=== PATIENT | female | born 1980 | race Caucasian/White ===

== ENCOUNTER → 2019-10-15 | Outpatient (CLI) | payer BC ==
[2019-10-15 11:42] LABS: CARBON DIOXIDE 23 MMOL/L (21-32); CHLORIDE 104 MMOL/L (98-107); POTASSIUM 3.9 MMOL/L (3.6-5.0); SODIUM 140 MMOL/L (135-145)
[2019-10-15 11:43] LABS: ALANINE AMINOTRANSFERASE 59 U/L (0-55); ALBUMIN 4.5 GM/DL (3.2-4.5); ALKALINE PHOSPHATASE 72 U/L (40-136); BILIRUBIN,TOTAL 0.3 MG/DL (0.1-1.0); BUN/CREATININE RATIO 11; CALCIUM 9.3 MG/DL (8.5-10.1); CREATININE SERUM 0.81 MG/DL (0.60-1.30); GFR ESTIMATED > 60; GLUCOSE 130 MG/DL (70-105); TOTAL PROTEIN 7.5 GM/DL (6.4-8.2)
[2019-10-15 14:46] LABS: TRIGLYCERIDES 158 MG/DL (<150); VLDL CHOLESTEROL 32 MG/DL (5-40)
[2019-10-15 14:51] LABS: CHOLESTEROL 176 MG/DL (< 200)
[2019-10-15 14:52] LABS: HDL CHOLESTEROL 37 MG/DL (40-60)
== END ==
LOC: LAB FS 10:16
PROVIDERS: ATTEND Family Medicine
DX: Z00.00 Encounter for general adult medical examination without abnormal findings (principal); Z83.3 Family history of diabetes mellitus
CPT/HCPCS: 36415; 80053; 80061; 83036; 84443; 86769

== ENCOUNTER → 2019-11-05 | Outpatient (CLI) | payer BC ==
--- NOTE | 2019-11-06 12:30 | STRESS TEST ---
DATE OF SERVICE: 11/05/2019 EXERCISE MYOVIEW STRESS TEST REPORT REFERRING PHYSICIAN: Anisa Sierra. Baseline heart rate is 64. Baseline blood pressure 106/75. Baseline EKG, sinus rhythm with no ischemic changes. In summary, the patient was able to exercise for a total of 7 minutes on standard Jean Carlos protocol. With peak exercise level, EKG was showing nondiagnostic changes. During recovery, heart rate and blood pressure returned to baseline. The resting and stressed images were reviewed showing no significant ischemia or infarction. SSS 1. SDS 1. TID 1.03. EF 67%. CONCLUSION: 1. Good exercise tolerance for a total of 7 minutes on standard Jean Carlos protocol, 8.5 METs achieving 96% of maximum expected heart rate. 2. Appropriate heart rate and blood pressure response to exercise returned to baseline during recovery. 3. Minimal nondiagnostic EKG changes with exercise returned to baseline during recovery. 4. No significant ischemia or infarction on SPECT images. 5. Normal left ventricular size, EF 67%. Job ID: [id number] DocumentID: [id number] Dictated Date: 11/06/2019 08:36:35 Card Checker Date: 11/06/2019 12:29:40 Dictated By: SILVANA LAFLEUR MD
== END ==
LOC: CARD 07:20
PROVIDERS: ATTEND Internal Medicine Cardiovascular Disease
DX: I10 Essential (primary) hypertension (principal); K21.9 Gastro-esophageal reflux disease without esophagitis; Z82.49 Family history of ischemic heart disease and other diseases of the circulatory system; Z20.828 Contact with and (suspected) exposure to other viral communicable diseases
CPT/HCPCS: 78452; 93017; A9502

== ENCOUNTER 2023-01-14 10:44 | Emergency (ER) | payer BC ==
[~2023-01-14] VITALS: Ht 160 cm; Wt 68.0 kg
--- NOTE | 2023-01-14 11:18 | ED Abdominal Pain ---
General Chief Complaint: Abdominal/GI Problems Stated Complaint: AB PAIN Nursing Triage Note: PT AMB TO RM 10 WITH COMPLAINT OF LOW ABD. HAS HAD THE PAIN INTERMITTENTLY FOR AROUND 3 MONTHS. HAS BEEN SEEN BY PCP. HAS ULTRASOUND SCHEDULED FOR TOMORROW. PAIN BECAME WORSE THIS MORNING AND SHE PASSED OUT. Source of Information: Patient Exam Limitations: No Limitations History of Present Illness Date Seen by Provider: Jan 14, 2023 Time Seen by Provider: 11:13 Initial Comments Patient is a 42-year-old female with a history of prediabetes who presents to the ED for lower abdominal pain. She has been experiencing this pain for the past 3 months. It occurs around every month around her menstrual cycle. She reports this pressure in her lower abdomen bilateral. This pain seems to be fairly constant throughout her menstrual cycle which last about 6 to 7 days. She reports heavy vaginal bleeding and going through several pads. She states that this pain intensified last night as well this morning she had an episode where she passed out secondary to the pain woke up on the floor. Unknown she hit her head but denies any headache dizziness visual changes, vomiting. She rates pain 6 out of 10. Has been taken ibuprofen. She is scheduled for an ultrasound tomorrow. Her primary care physician Dr. Cordova. Strong family history of ovarian cyst, uterine fibroids. History of cholecystectomy and 2 C- sections. She does report some mild diarrhea. Denies pain with urination frequent urination. She has been on antibiotics twice as a thought this was secondary to urinary tract infection. She has no urinary symptoms. She denies fever chills, visual changes, neck pain, back pain Allergies and Home Medications Allergies Coded Allergies: Penicillins (Verified Allergy, Unknown, 01/14/23) amoxicillin (Verified Allergy, Unknown, 01/14/23) Patient Home Medication List Home Medication List Reviewed: Yes Cephalexin (Cephalexin) 500 Mg Tablet, 500 MG PO BID Prescribed by: PETE ESPINAL on 01/14/23 1311 Review of Systems Review of Systems Constitutional: No chills, No diaphoresis, No malaise, No weakness EENTM: No Double Vision, No Eye Pain Gastrointestinal: Abdominal Pain; Denies Diarrhea; Nausea; Denies Vomiting Genitourinary: Denies Burning, Denies Discharge, Denies Drainage, Denies Frequency Musculoskeletal: No back pain, No joint pain Skin: No change in color, No change in hair/nails Psychiatric/Neurological: Denies Anxiety, Denies Depressed Endocrine: Denies Excessive Sweating, Denies Flushing All Other Systems Reviewed Negative Unless Noted: Yes Past [id number] Hx Patient Social History Tobacco Use?: No Use of E-Cig and/or Vaping dev: No Substance use?: No Alcohol Use?: No Pt feels they are or have been: No Physical Exam Vital Signs Vital Signs - First Documented 01/14/23 10:49 Temp 35.7 Pulse 86 Resp 17 B/P (MAP) 119/85 (96) Pulse Ox 99 O2 Delivery Room Air Capillary Refill : Height/Weight/BMI Height: '" Weight: lbs. oz. kg; 26.00 BMI Method: General Appearance: WD/WN, no apparent distress HEENT: PERRL/EOMI, normal ENT inspection, TMs normal, pharynx normal Neck: non-tender, full range of motion, supple, normal inspection Respiratory: chest non-tender, lungs clear Cardiovascular: regular rate, rhythm, no edema, no gallop, no JVD Gastrointestinal: normal bowel sounds, soft, no organomegaly, tenderness (biLateral lower abdominal tenderness) Extremities: normal range of motion, non-tender, normal inspection, no pedal edema Back: normal inspection, no CVA tenderness Neurologic/Psychiatric: mixologist II-XII nml as tested, no motor/sensory deficits, alert, normal mood/affect, oriented x 3 Skin: normal color, warm/dry Progress/Results/Core Measures Results/Orders Lab Results Laboratory Tests Test 01/14/23 11:12 01/14/23 12:28 Range/Units Urine Color YELLOW Urine Clarity CLOUDY Urine pH 5.5 5-9 Urine Specific [place] 1.025 H 1.016-1.022 Urine Protein 1+ H NEGATIVE Urine Glucose (UA) NEGATIVE NEGATIVE Urine Ketones 3+ H NEGATIVE Urine Nitrite NEGATIVE NEGATIVE Urine Bilirubin 1+ H NEGATIVE Urine Urobilinogen 0.2 < = 1.0 MG/DL Urine Leukocyte Esterase 1+ H NEGATIVE Urine RBC (Auto) 3+ H NEGATIVE Urine RBC TNTC H /HPF Urine WBC 5-10 H /HPF Urine Squamous Epithelial Cells 2-5 /HPF Urine Crystals NONE /LPF Urine Bacteria NEGATIVE /HPF Urine Casts NONE /LPF Urine Mucus NEGATIVE /LPF Urine Culture Indicated YES White Blood Count 8.2 4.3-11.0 10^3/uL Red Blood Count 5.01 3.80-5.11 10^6/uL Hemoglobin 14.3 11.5-16.0 g/dL Hematocrit 42 35-52 % Mean Corpuscular Volume 84 80-99 fL Mean Corpuscular Hemoglobin 29 25-34 pg Mean Corpuscular Hemoglobin Concent 34 32-36 g/dL Red Cell Distribution Width 11.5 10.0-14.5 % Platelet Count 204 130-400 10^3/uL Mean Platelet Volume 10.2 9.0-12.2 fL Immature Granulocyte % (Auto) 0 % Neutrophils (%) (Auto) 75 42-75 % Lymphocytes (%) (Auto) 18 12-44 % Monocytes (%) (Auto) 7 0-12 % Eosinophils (%) (Auto) 0 0-10 % Basophils (%) (Auto) 0 0-10 % Neutrophils # (Auto) 6.2 1.8-7.8 10^3/uL Lymphocytes # (Auto) 1.4 1.0-4.0 10^3/uL Monocytes # (Auto) 0.5 0.0-1.0 10^3/uL Eosinophils # (Auto) 0.0 0.0-0.3 10^3/uL Basophils # (Auto) 0.0 0.0-0.1 10^3/uL Immature Granulocyte # (Auto) 0.0 0.0-0.1 10^3/uL Sodium Level 136 135-145 MMOL/L Potassium Level 3.6 3.6-5.0 MMOL/L Chloride Level 105 98-107 MMOL/L Carbon Dioxide Level 21 21-32 MMOL/L Anion Gap 10 5-14 MMOL/L Blood Urea Nitrogen 11 7-18 MG/DL Creatinine 0.92 0.60-1.30 MG/DL Estimat Glomerular Filtration Rate 79 BUN/Creatinine Ratio 12 Glucose Level 80 70-105 MG/DL Calcium Level 8.4 L 8.5-10.1 MG/DL Corrected Calcium 8.6 8.5-10.1 MG/DL Total Bilirubin 0.6 0.1-1.0 MG/DL Aspartate Amino Transf (AST/SGOT) 19 5-34 U/L Alanine Aminotransferase (ALT/SGPT) 21 0-55 U/L Alkaline Phosphatase 54 40-136 U/L Troponin I < 0.028 <0.028 NG/ML Total Protein 6.4 6.4-8.2 GM/DL Albumin 3.8 3.2-4.5 GM/DL Lipase 39 8-78 U/L My Orders Orders - MOHINDER YODER Cbc And Automated Diff (01/14/23 11:12) Comprehensive Metabolic Panel (01/14/23 11:12) Lipase (01/14/23 11:12) Ua Culture If Indicated (01/14/23 11:12) Ct Abdomen/Pelvis W (01/14/23 11:12) Ekg Tracing (01/14/23 11:12) Troponin I [place] (01/14/23 11:12) Iohexol Injection (Omnipaque 350 Mg/Ml 1 (01/14/23 11:30) Received Contrast (Hold Metformin- Contr (01/14/23 11:30) Ns (Ivpb) 100 Ml (Sodium Chloride 0.9% 1 (01/14/23 11:30) Urine Culture (01/14/23 11:12) Medications Given in ED Current Medications Medications Dose Ordered Sig/Riaz Route Start Time Stop Time Status Last Admin Dose Admin Iohexol 100 ml ONCE ONCE IV 01/14/23 11:30 01/14/23 11:31 DC 01/14/23 12:11 80 ML Sodium Chloride 100 ml ONCE ONCE IV 01/14/23 11:30 01/14/23 11:31 DC 01/14/23 12:11 100 ML Vital Signs/I&O 01/14/23 01/14/23 10:49 13:15 Temp 35.7 35.7 Pulse 86 86 Resp 17 17 B/P (MAP) 119/85 (96) 115/79 Pulse Ox 99 99 O2 Delivery Room Air Room Air Blood Pressure Mean: 96 Comment Sinus rhythm with occasional ventricular premature complexes, 76 bpm, QRS duration 81 MS, QTc 388 MS Departure Communication (PCP) Patient is a 42-year-old female who presents to the ED for lower abdominal pain for the past 3 months. This tends occur during her menstrual cycle with heavy vaginal bleeding. Severe pain last night and this morning resulted in a syncopal episode. She has been taken ibuprofen. On arrival alert and orient x4. GCS of 15. She rates pain 6 out of 10 in her lower abdomen. Refusing thing for pain. No specific urinary symptoms. Has been treated with antibiotics with very minimal improvement. Scheduled for an ultrasound tomorrow . Differential diagnosis, ovarian cyst, uterine fibroids, UTI, diverticulitis, colitis. CBC, CMP, troponin, EKG and lipase was ordered. EKG without evidence of ST elevation or depression or arrhythmia. She had no specific chest pain or shortness of breath before her episode but did feel some palpitations afterwards. She is unsure if she was anxious or secondary to the pain which was most likely. Urinalysis was ordered as well which did note red blood cells white blood cells concern for UTI. Culture currently pending. CBC, CMP was grossly unremarkable. Normal troponin. She refused anything for pain. CT abdomen pelvis was obtained which mild wall thickening of the proximal aspect of the transverse colon but otherwise grossly unremarkable. Nonspecific colitis. No evidence of large ovarian cyst or mass. Since pain is bilateral unlikely ovarian torsion. Discussed all results with patient. Suspect that she may potentially have uterine fibroids due to the increasing pain with her menstrual cycle and the heavier vaginal bleeding lasting roughly 6 to 7 days. She does not appear anemic. She does not appear toxic. No evidence of surgical abdomen. Will discharge with Keflex for questionable UTI. Recommend with your ultrasound tomorrow. Suggest following up with gynecology for further evaluation. She refused anything else for pain. If any worsening symptoms such as pain fever vomiting, syncope to return back to ED. Impression Primary Impression: Pelvic pain Additional Impression: UTI (urinary tract infection) Disposition: 01 HOME, SELF-CARE Condition: Stable Departure-Patient Inst. Decision time for Depature: 13:10 Referrals: THONY CORDOVA MD (PCP/Family) Primary Care Physician Patient Instructions: Pelvic Pain ED Add. Discharge Instructions: Recommend follow-up with your ultrasound tomorrow. Will prescribe Keflex for UTI. Continue with ibuprofen. If any worsening symptoms return back to ED. All discharge instructions reviewed with patient and/or family. Voiced understanding. Scripts Cephalexin (Cephalexin) 500 Mg Tablet 500 MG PO BID for 7 Days, #14 TAB Prov: MOHINDER YODER 01/14/23 MOHINDER YODER Jan 14, 2023 11:18
[2023-01-14 11:29] LABS: CLARITY,URINE CLOUDY; COLOR,URINE YELLOW; GLUCOSE, URINE (UA) NEGATIVE (NEGATIVE); KETONES,URINE 3+ (NEGATIVE); NITRITE,URINE NEGATIVE (NEGATIVE); PH,URINE 5.5 (5-9); PROTEIN,URINE 1+ (NEGATIVE)
[2023-01-14 11:30] LABS: BACTERIA,URINE NEGATIVE /HPF; BILIRUBIN,URINE 1+ (NEGATIVE); LEUKOCYTE ESTERASE ,URINE 1+ (NEGATIVE); RBC,URINE TNTC /HPF
[2023-01-14] MEDS ORDERED: NS 100 ML (IVPB) BAG IV ONE (11:30)
[2023-01-14] MEDS ORDERED: IOHEXOL 350 MG/ML 100 ML (OMNIPAQUE 350) VIAL IV ONE (11:30)
[2023-01-14] MEDS ORDERED: HOLD METFORMIN - RECEIVED CONTRAST 20 ML VIAL IV SCH (11:30)
[2023-01-14 12:38] LABS: BASOPHILS % (AUTO) 0 % (0-10); EOSINOPHILS % (AUTO) 0 % (0-10); HEMATOCRIT 42 % (35-52); HEMOGLOBIN 14.3 g/dL (11.5-16.0); LYMPHOCYTES # (AUTO) 1.4 10^3/uL (1.0-4.0); LYMPHOCYTES % (AUTO) 18 % (12-44); MEAN CORPUSCULAR HEMOGLOBIN 29 pg (25-34); MEAN CORPUSCULAR HGB CONC 34 g/dL (32-36); MEAN CORPUSCULAR VOLUME 84 fL (80-99); MEAN PLATELET VOLUME 10.2 fL (9.0-12.2); MONOCYTES # (AUTO) 0.5 10^3/uL (0.0-1.0); MONOCYTES % (AUTO) 7 % (0-12); NEUTROPHILS # (AUTO) 6.2 10^3/uL (1.8-7.8); NEUTROPHILS % (AUTO) 75 % (42-75); PLATELET COUNT 204 10^3/uL (130-400); WHITE BLOOD COUNT 8.2 10^3/uL (4.3-11.0)
--- NOTE | 2023-01-14 12:38 | Diagnostic Imaging Report ---
Procedure: CT abdomen and pelvis with contrast. Technique: Multiple contiguous axial images were obtained through the abdomen and pelvis after administration of intravenous contrast. Auto Exposure Controls were utilized during the CT exam to meet ALARA standards for radiation dose reduction. All CT scans use one or more of the following dose optimizing techniques: automated exposure control, MA and/or KvP adjustment based on patient size and exam type or iterative reconstruction. Date: January 14, 2023. Indication: 42-year-old female, lower abdominal pain. Comparison: None. Findings: The lung bases are clear. The heart is not enlarged. There is no pericardial effusion. The liver is unremarkable in size and contour. There is no identified liver lesion. The main, right, and left portal veins are patent. The gallbladder is surgically absent. There is no biliary ductal dilation. The main pancreatic duct is not abnormally dilated. Unremarkable appearance of the pancreatic parenchyma. The spleen is normal in size. The adrenal glands are unremarkable. Unremarkable appearance of the renal parenchyma. The urinary collecting systems are not distended. There is no identified renal or ureteral stone. The urinary bladder is unremarkable. The intestinal tract is not distended. There is no evidence of acute appendicitis. There is no free intraperitoneal air. There is no drainable fluid collection. There is no free fluid in the abdomen or pelvis. There is mild wall thickening of the proximal aspect of the transverse colon. There is no identified abnormally enlarged lymph node in the abdomen or pelvis meeting CT size criteria for adenopathy. There is no identified acute bony abnormality. There are severe disc degenerative changes at L5-S1. Impression: 1. Mild wall thickening of the proximal aspect of the transverse colon which may reflect a nonspecific colitis. Infectious and inflammatory etiologies would be favored. Dictated by: Dictated on workstation # [id number]
[2023-01-14 12:51] LABS: ALBUMIN 3.8 GM/DL (3.2-4.5); CHLORIDE 105 MMOL/L (98-107); POTASSIUM 3.6 MMOL/L (3.6-5.0); SODIUM 136 MMOL/L (135-145)
[2023-01-14 12:52] LABS: CALCIUM 8.4 MG/DL (8.5-10.1)
[2023-01-14 12:53] LABS: GLUCOSE 80 MG/DL (70-105); TOTAL PROTEIN 6.4 GM/DL (6.4-8.2)
[2023-01-14 12:54] LABS: CARBON DIOXIDE 21 MMOL/L (21-32)
[2023-01-14 12:55] LABS: BILIRUBIN,TOTAL 0.6 MG/DL (0.1-1.0)
[2023-01-14 12:57] LABS: ALKALINE PHOSPHATASE 54 U/L (40-136); CREATININE SERUM 0.92 MG/DL (0.60-1.30); GFR ESTIMATED 79
[2023-01-14 12:58] LABS: BUN/CREATININE RATIO 12
[2023-01-14 13:00] LABS: ALANINE AMINOTRANSFERASE 21 U/L (0-55); LIPASE 39 U/L (8-78)
[2023-01-14] MEDS ORDERED: CEPH500T PO (13:11)
[2023-01-14 13:15] VITALS: BP 115/79
== END 2023-01-14 13:15 | disposition home or self-care (01) ==
LOC: EDUNIT# 10:44 → ER 10:47
DX: N39.0 Urinary tract infection, site not specified (principal); Z88.0 Allergy status to penicillin
CPT/HCPCS: 36415; 74177; 80053; 81000; 83690; 84484; 85025; 87088; 93005